=== PATIENT | male | born 1990 | race Caucasian/White ===

== ENCOUNTER 2017-11-26 04:20 | Emergency (ER) | payer MEDICAID | END 2017-11-26 05:08 | disposition home or self-care (01) | LOC: FTE 04:20 | DX: F19.982 Other psychoactive substance use, unspecified with psychoactive substance-induced sleep disorder (principal); F15.90 Other stimulant use, unspecified, uncomplicated; F14.90 Cocaine use, unspecified, uncomplicated | CPT/HCPCS: 99282 ==